=== PATIENT | male | born 1965 | race Hispanic/Latino ===

== ENCOUNTER → 2020-06-22 | Outpatient (CLI) | payer OTHER ==
--- NOTE | 2020-06-22 17:01 | DIREP ---
PROCEDURE:XRAY HIP MIN 2VW-RT COMPARISON:None. INDICATIONS:HISTORY AND PHYSICAL EVALUATION FINDINGS: BONES:No acute fracture. JOINTS:No significant degenerative changes of the hips. SOFT TISSUES:No suspicious abnormality. OTHER:No additional findings. CONCLUSION: 1. No acute osseous abnormality or significant degenerative changes of the hips. Dictated by: Brian Batista M.D. On 06/22/2020 at 04:58 PM
--- NOTE | 2020-06-22 17:02 | DIREP ---
PROCEDURE:XRAY KNEE 2 VWS-RT COMPARISON:None. INDICATIONS:HISTORY AND PHYSICAL EVALUATION FINDINGS: BONES:No acute fracture. JOINTS:Joint spaces appear relatively preserved. SOFT TISSUES:No sizable suprapatellar joint effusion. OTHER:No additional findings. CONCLUSION: 1. No acute osseous abnormality or significant degenerative joint disease. 2. No sizable suprapatellar joint effusion. Dictated by: Brian Batista M.D. On 06/22/2020 at 05:00 PM
== END | disposition home or self-care (01) ==
LOC: RAD 10:34
PROVIDERS: ATTEND Registered Nurse
DX: Z00.00 Encounter for general adult medical examination without abnormal findings (principal)
CPT/HCPCS: 73502; 73560